=== PATIENT | female | born 1970 | race Caucasian/White ===

== ENCOUNTER 2017-05-19 09:45 | Emergency (ER) | payer SELFPAY ==
[2017-05-19 09:57] VITALS: BP 125/69
[2017-05-19] MEDS ORDERED: ALBUTEROL SULFATE HFA (90 MCG/PUFF) 8 GM MDI (1 MDI/ER DISP) IH PRN (10:25)
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
== END 2017-05-19 10:55 | disposition home or self-care (01) ==
LOC: ER 09:45
DX: J45.20 Mild intermittent asthma, uncomplicated (principal); R05 Cough
CPT/HCPCS: 99281; J3490